=== PATIENT | female | born 1995 | race Caucasian/White ===

== ENCOUNTER 2019-10-12 12:50 | Outpatient (CLI) | payer OTHER, MEDICAID, SELFPAY ==
[2019-10-12 12:50] VITALS: BMI 30.4
[2019-10-12 13:13] VITALS: BP 112/64; PULSE 95; RESP 17; TEMP 36.8
--- NOTE | 2019-10-12 13:22 | US_ITS ---
WS: [id number] ULTRASOUND OB LIMITED TECHNIQUE: Limited ultrasound examination of the fetus. CLINICAL INFORMATION: Intermitent bleeding COMPARISON: August 03, 2019 FINDINGS: Measurements difficult to obtain due to position. Single interuterine gestation. presentation is vertex Placental location is posterior. Placenta grade: 0. heart rate 120 BPM. Normal JESSY Cervix 4.6 cm Estimated gestational age 35 weeks 5 days Estimated delivery November 11, 2019 Estimated weight 6 lbs. 2 oz. JESSY 7.8 greater than 95th percentile for age Biophysical profile 8 out of 8. breathin movement: 2 tone: 2 Amniotic fluid: 2 IMPRESSION Normal biophysical profile 8 out of 8
[2019-10-12 13:42] VITALS: BP 104/65; PULSE 81; RESP 17
== END 2019-10-12 14:20 | disposition home or self-care (01) ==
PROVIDERS: Family Provider Family Medicine; PCP Family Medicine; Visit Provider Family Medicine
DX: O46.90 Antepartum hemorrhage, unspecified, unspecified trimester (principal); Z3A.00 Weeks of gestation of pregnancy not specified
CPT/HCPCS: 59025; 76815; 76819; 99211

== ENCOUNTER 2019-10-14 11:15 | Outpatient (CLI) | payer OTHER, MEDICAID, SELFPAY ==
[2019-10-14 11:33] VITALS: RESP 18; TEMP 36.6
--- NOTE | 2019-10-14 11:37 | US_ITS ---
WS: [id number] BIOPHYSICAL PROFILE HISTORY: LOW JESSY COMPARISON: 10/12/2019 Parameters are as follows: Breathin Movement: 2 Tone: 2 Fluid volume: 2 heart rate 180 bpm. Fluid: 11.9 cm which is between the fifth and 50th percentile. Largest vertical pocket of amniotic fl uid is 4.3 cm. Biophysical profile score: 8/8. Normal amniotic fluid index. US/US OB BPP wo NST [id number] IMPRESSION:
[2019-10-14] MEDS: lactated ringers 1,000 ML 999 ML IV (11:58)
[2019-10-14 12:29] LABS: Basophils % 0.3 %; Eosinophils # 0.1 10^3/uL (0.0-0.8); Eosinophils % 1.6 %; Hematocrit 35.7 % (37.0-47.0); Hemoglobin 11.9 g/dL (11.5-15.3); Lymphocytes # 0.7 10^3/uL (0.8-4.8); Lymphocytes % 8.7 %; Mean Corpuscular HGB Conc 33.3 g/dL (30.0-36.0); Mean Corpuscular Hemoglobin 28.8 pg (28.0-34.0); Mean Corpuscular Volume 86.4 fL (81-99); Mean Platelet Volume 11.7 fL (7.4-10.4); Monocytes # 1.3 10^3/uL (0.2-0.9); Monocytes % 17.7 %; Neutrophils # 5.4 10^3/uL (1.8-7.7); Neutrophils % 70.6 %; Nucleated Red Blood Cells % 0 %; Platelet Count 138 10^3/cmm (130-400); Red Blood Count 4.13 10^6/uL (4.1-5.3); Red Cell Distribution Width 12.9 % (12.1-15.1); White Blood Count 7.6 10^3/uL (4.0-10.0)
[2019-10-14 12:51] LABS: Alanine Aminotransferase 24 U/L (0-33); Albumin Level 3.8 g/dL (3.5-5.2); Alkaline Phosphatase 122 IU/L (35-105); Anion Gap 18.7 (5-19); Aspartate Amino Transferase 30 U/L (0-32); Blood Urea Nitrogen 6 mg/dL (6-20); Calcium 9.4 mg/dL (8.5-10.5); Carbon Dioxide 19 mmol/L (22-29); Chloride 101 mmol/L (98-107); Globulin 2.7 g/dL (1.3-4.6); Glomerular Filtration Rate 122.8 mL/min (90-130); Glucose 72 mg/dL (65-115); Potassium 3.7 mmol/L (3.5-5.1); Sodium 135 mmol/L (136-145); Total Bilirubin 0.8 mg/dL (0.15-1.2); Total Protein 6.5 g/dL (6.6-8.7)
[2019-10-14 13:03] VITALS: BP 0/0
[2019-10-14 13:04] VITALS: BP 103/64; PULSE 104
[2019-10-14 13:23] VITALS: BP 108/64; PULSE 101
== END 2019-10-14 13:37 | disposition home or self-care (01) ==
LOC: OPOB 11:31 → OBGYN 13:27 → OPOB 10-15 08:03
PROVIDERS: Family Provider Family Medicine; PCP Family Medicine; Visit Provider Family Medicine
DX: O26.899 Other specified pregnancy related conditions, unspecified trimester (principal); Z3A.00 Weeks of gestation of pregnancy not specified; R11.0 Nausea; R19.7 Diarrhea, unspecified
CPT/HCPCS: 36415; 76819; 80053; 85025; 99211

== ENCOUNTER 2019-10-19 07:03 | Outpatient (CLI) | payer OTHER, MEDICAID, SELFPAY ==
--- NOTE | 2019-10-19 07:15 | US_ITS ---
WS: [id number] [place] [id number] REASON FOR EXAM: VAGINAL BLEEDING THIRD TRIMESTER FINDINGS: The cervix measured 3.79 cm and appears to be closed. A single fetus is seen in the cephalic presentation. heart rate 144 beats for minute. The placenta is lateral and slightly posterior and appears to be grade 2. Amniotic fluid indices 11.98 cm. Biophysical profile 03/26. The etiology of the bleeding is not well [place]. US/[place] [id number] IMPRESSION: Physical profile 03/26 Single fetus cephalic presentation the lateral posterior placenta which appears to be intact. Amniotic fluid indices were normal heart rate 144 bpm.
== END 2019-10-19 07:04 | disposition home or self-care (01) ==
LOC: RAD 07:07
PROVIDERS: Family Provider Family Medicine; PCP Family Medicine; Visit Provider Family Medicine
DX: O46.93 Antepartum hemorrhage, unspecified, third trimester (principal); Z3A.00 Weeks of gestation of pregnancy not specified
CPT/HCPCS: 59025; 76816; 99211

== ENCOUNTER 2019-10-19 12:20 | Outpatient (CLI) | payer OTHER, MEDICAID, SELFPAY ==
[2019-10-19 12:29] VITALS: BP 104/65; PULSE 80; RESP 16; TEMP 36.4
[2019-10-19 12:38] VITALS: BMI 30.4
== END 2019-10-19 12:55 | disposition home or self-care (01) ==
PROVIDERS: Family Provider Family Medicine; PCP Family Medicine; Visit Provider Family Medicine
DX: O46.90 Antepartum hemorrhage, unspecified, unspecified trimester (principal); Z3A.00 Weeks of gestation of pregnancy not specified
CPT/HCPCS: 59025; 99211

== ENCOUNTER 2019-10-22 09:20 | Outpatient (CLI) | payer OTHER, MEDICAID, SELFPAY ==
[2019-10-22 09:32] VITALS: BP 98/57; PULSE 75; RESP 16; TEMP 36.5
[2019-10-22 09:48] VITALS: BP 101/64; PULSE 85
[2019-10-22 10:17] VITALS: BMI 30.5
== END 2019-10-22 10:03 | disposition home or self-care (01) ==
PROVIDERS: Family Provider Family Medicine; PCP Family Medicine; Visit Provider Family Medicine
DX: O26.899 Other specified pregnancy related conditions, unspecified trimester (principal); Z3A.00 Weeks of gestation of pregnancy not specified
CPT/HCPCS: 59025; 99211

== ENCOUNTER 2019-10-25 15:22 | Outpatient (CLI) | payer OTHER, MEDICAID, SELFPAY ==
[2019-10-25 15:42] VITALS: BP 106/65; PULSE 80
[2019-10-25 16:02] VITALS: RESP 16; TEMP 36.8
--- NOTE | 2019-10-25 16:02 | USR_ITS ---
PROCEDURE INFORMATION: Exam: US , Limited Exam date and time: 10/25/2019 5:00 PM Age: 24 years old Clinical indication: complicated by abdominal or pelvic pain; Generalized abdominal pain; Third trimester; Gestational age or lmp: 38 weeks 2 days; ; Additional info: Abdominal pain, placenta evaluation TECHNIQUE: Imaging protocol: Real-time ultrasound of the maternal uterus with image documentation. Exam focused on the clinical indication. COMPARISON: [place] [id number] 10/19/2019 7:24 AM FINDINGS: GESTATION: Gestation: movement noted during the evaluation. Limited obstetrical ultrasound. anatomy and measurements as well as weight determination not evaluated. Heart rate: cardiac activity at 133 bpm and regular. Presentation: Cephalic presentation. Placenta: Fundoposterior and right lateral placenta without visible previa or abruption. Amniotic fluid: Largest amniotic fluid pocket measures 6.4 cm. Umbilical cord and insertion: Three-vessel cord. Normal placental cord origin. MATERNAL: Cervix: Cervix not imaged. US/ OB limited [id number] IMPRESSION: 1. Single intrauterine gestation in cephalic presentation with positive heart activity at 133 bpm. 2. Fundoposterior and right lateral placenta without visible previa or abruption. 3. Largest amniotic fluid pocket 6.4 cm.
[2019-10-25 16:13] VITALS: BP 98/61; PULSE 72
[2019-10-25 16:42] VITALS: BP 0/0
[2019-10-25 17:06] VITALS: BP 99/60; PULSE 79
[2019-10-25 17:10] LABS: Bilirubin Urine Neg (NEGATIVE); Blood Urine Neg (Negative); Glucose Urine UA Norm (Normal); Ketones Urine 1+ (Negative); Leukocyte Esterase Urine Negative (Negative); Nitrate Urine Negative (Negative); Protein Urine Neg (Negative); Specific Gravity, Urine 1.025 (1.005-1.030); Urine Appearance Hazy (CLEAR); Urine Color Yellow (Yellow); Urobilinogen Urine Norm (Negative); pH Urine 5 (5-7)
[2019-10-25 17:11] LABS: WBC Urine 0-4 /hpf (0-5)
[2019-10-25 17:12] LABS: Bacteria Urine 1+; Mucus Urine 1+; Transitional Epi Cells Urine 0-4 /hpf
[2019-10-25 17:13] LABS: Add Urine Culture? No
[2019-10-25 17:40] VITALS: BP 99/60; PULSE 79; RESP 17; TEMP 36.8
--- NOTE | 2019-10-25 18:00 | PC.NURSE ---
pt placed on monitor, sve performed, plan of care discussed. pitcher of water given, pt instructed to drink all in 20 minutes
== END 2019-10-25 17:40 | disposition home or self-care (01) ==
LOC: OPOB 15:33 → OBGYN 17:39 → OPOB 10-26 09:20
PROVIDERS: Family Provider Family Medicine; PCP Family Medicine; Visit Provider Family Medicine
DX: O26.899 Other specified pregnancy related conditions, unspecified trimester (principal); Z3A.00 Weeks of gestation of pregnancy not specified; R10.9 Unspecified abdominal pain
CPT/HCPCS: 59025; 76815; 81001; 99211

== ENCOUNTER 2019-10-26 09:41 | Outpatient (CLI) | payer OTHER, MEDICAID, SELFPAY ==
--- NOTE | 2019-10-26 10:15 | US_ITS ---
WS: [id number] BIOPHYSICAL PROFILE AND LIMITED OB. HISTORY: VAGINAL BLEEDING 3RD TRIMESTER COMPARISON: 10/25/2019. Presentation: Vertex. Cervix: Closed and normal length. Placenta: Posterior and fundal Grade: 2 HEART: FHR of 153BPM. JESSY: 10.9 CM. Between the fifth and 50th percentiles. Biophysical profile: Parameters are as follows: Breathin Movement: 2 Tone: 2 Fluid volume: 2 1. Biophysical profile score: 8/8. 2. Amniotic fluid index at 10.9 cm is between the fifth and 50th percentiles. Largest vertical pocket 3.3 cm. US/US OB F/U w BPP wo NST IMPRESSION:
== END 2019-10-26 09:42 | disposition home or self-care (01) ==
LOC: US 09:43
PROVIDERS: Family Provider Family Medicine; PCP Family Medicine; Visit Provider Family Medicine
DX: O46.93 Antepartum hemorrhage, unspecified, third trimester (principal)
CPT/HCPCS: 76816; 76819; 99211

== ENCOUNTER 2019-10-26 10:32 | Outpatient (CLI) | payer OTHER, MEDICAID, SELFPAY ==
[2019-10-26 10:32] VITALS: BMI 30.2
[2019-10-26 10:43] VITALS: BP 97/64; PULSE 80; RESP 16; TEMP 36.6
[2019-10-26 10:58] VITALS: BP 92/62; PULSE 91; RESP 16
== END 2019-10-26 11:12 | disposition home or self-care (01) ==
PROVIDERS: Family Provider Family Medicine; PCP Family Medicine; Visit Provider Family Medicine
DX: O46.90 Antepartum hemorrhage, unspecified, unspecified trimester (principal); Z3A.00 Weeks of gestation of pregnancy not specified
CPT/HCPCS: 59025; 99211

== ENCOUNTER 2019-10-29 09:53 | Outpatient (CLI) | payer OTHER, MEDICAID, SELFPAY ==
[2019-10-29 10:13] VITALS: BP 102/68; PULSE 90; RESP 16; TEMP 36.4
[2019-10-29 10:14] VITALS: BMI 30.5
== END 2019-10-29 10:30 | disposition home or self-care (01) ==
LOC: OPOB 10:07 → OBGYN 10:10 → OPOB 10-30 08:07
PROVIDERS: Family Provider Family Medicine; PCP Family Medicine; Visit Provider Family Medicine
DX: O46.90 Antepartum hemorrhage, unspecified, unspecified trimester (principal); Z3A.00 Weeks of gestation of pregnancy not specified
CPT/HCPCS: 59025; 99211

== ENCOUNTER 2019-11-01 17:45 | Inpatient (IN) | payer OTHER, MEDICAID, SELFPAY ==
[2019-11-01] VITALS (15 sets, daily range): BP systolic 0–109; BP diastolic 0–70; PULSE 83–97; RESP 15–16; TEMP 36.7; BMI 31.2
[2019-11-01 19:29] LABS: Basophils % 0.3 %; Eosinophils # 0.3 10^3/uL (0.0-0.8); Eosinophils % 2.6 %; Hematocrit 32.4 % (37.0-47.0); Hemoglobin 10.9 g/dL (11.5-15.3); Lymphocytes % 20.9 %; Mean Corpuscular HGB Conc 33.6 g/dL (30.0-36.0); Mean Corpuscular Hemoglobin 29.1 pg (28.0-34.0); Mean Corpuscular Volume 86.6 fL (81-99); Mean Platelet Volume 11.8 fL (7.4-10.4); Monocytes # 1.2 10^3/uL (0.2-0.9); Monocytes % 12.1 %; Neutrophils # 6.1 10^3/uL (1.8-7.7); Neutrophils % 63.3 %; Nucleated Red Blood Cells % 0 %; Platelet Count 178 10^3/cmm (130-400); Red Blood Count 3.74 10^6/uL (4.1-5.3); Red Cell Distribution Width 12.6 % (12.1-15.1); White Blood Count 9.7 10^3/uL (4.0-10.0)
[2019-11-01] MEDS: miSOPROStol 100 mcg tablet 25 MCG VAGINAL (19:45)
--- NOTE | 2019-11-01 21:04 | PC.NURSE ---
Dr. Vargas at bedside discussing POC with patient.
--- NOTE | 2019-11-01 21:15 | P.HP_ITS ---
Providers/Chief Complaint Admitting Physician: Jun Vargas MD Primary Care Provider: Jun Vargas MD Chief Complaint: induction History of Present Illness Traci Santamaria is a 24 year old at 39.2 weeks gestation by 7-week ultrasound inconsistent with LMP. Her is complicated by severe persistent asthma, first, second and third trimester bleeding. The patient presents to labor and delivery triage for a scheduled induction of labor secondary to bleeding throughout the . The concern was that this could be secondary to a placental bleed, however this cannot be seen on ultrasound. For this reason we waited until 39 weeks gestation. The patient currently denies any leakage of fluid, fevers, cough, chest pains, shortness of breath, headaches, nausea, vomiting, diarrhea, constipation. She has had some mild spotting since her cervical exam in the office. Medications/Allergies Allergies Allergy/AdvReac Type Severity Reaction Status Date / Time [facility] Allergy Unknown Verified 11/01/19 19:37 PFSH Acute PFSH: Medical History (Updated 11/01/19 @ 21:17 by Jun Vargas MD) Asthma Female Reproductive History: : 1 Vitals/I&O/Wt Last Vital Signs Temp 98.1 F 11/01/19 18:00 Pulse 97 11/01/19 20:47 Resp 16 11/01/19 18:00 BP 109/67 11/01/19 20:47 Weight last 48 hrs Weight 182 lb Physical Exam Narrative: EXAM NARRATIVE: General: Alert and oriented x3 Eyes: Pupils equal round and reactive to light and accommodation Mouth: Mucous membranes moist, pharynx non-erythematous Cardiac: Regular rate and rhythm without murmurs Lungs: Clear to auscultation bilaterally without wheezes, crackles or rhonchi Abdomen: Soft, non-tender, fundus consistent with gestational age Extremities: Trace edema in the bilateral lower extremities Data : 11/01/19 18:50 A&P Assessment and plan (1) Asthma: Status: Acute Code(s): J45.909 - Unspecified asthma, uncomplicated Additional A&P Information The patient is currently doing well at this time. We will proceed with induction of labor using Cytotec. heart tones are currently in the mid 130s with moderate variability and good accelerations. She is having contractions every 3 to 5 minutes. They are mild in nature. The patient is currently normotensive. She is afebrile. We will plan to continue with routine induction of labor. All questions were answered. The patient and her are in agreement with the current plan of care. Attestations Medical Necessity Statement*: The patient will be here for greater than 2 midnights due to routine intrapartum and management of labor and delivery. 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
[2019-11-02] VITALS (111 sets, daily range): BP systolic 0–131; BP diastolic 0–95; PULSE 21–116; RESP 17–18; TEMP 36.6–37.1; O2SAT 69–100
[2019-11-02] MEDS: miSOPROStol 100 mcg tablet 25 MCG VAGINAL (02:30)
[2019-11-02 06:03] LABS: Nitrazine Paper, PH Positive
[2019-11-02] MEDS: dextrose 5%-lactated ringers 1,000 ML 125 ML IV (07:39)
[2019-11-02] MEDS: oxytocin 30 UNIT/500 ML BAG IV (07:39)
--- NOTE | 2019-11-02 08:20 | PM.PN ---
Subjective Subjective: Interval history: The patient is currently starting to feel her contractions little bit more. She had a period of possible leakage of fluid early this morning. After going to the bathroom, there was another leakage of fluid that was involuntary. She has not had a significant amount since. The patient has had some vaginal bleeding and a small clot as well. Besides this she is feeling well. Vitals/I&O/Wt Last Vital Signs Temp 97.9 F 11/02/19 07:43 Pulse 69 11/02/19 07:56 Resp 18 11/02/19 05:45 BP 99/63 11/02/19 07:56 11/01/19 11/02/19 11/02/19 22:59 06:59 14:59 Intake Total 0.517 / 0.517 Balance 0.517 / 0.517 Weight last 48 hrs Weight 182 lb Physical Exam Narrative: EXAM NARRATIVE: General: Alert and oriented x3 Cardiac: Regular rate and rhythm without murmurs Lungs: Clear to auscultation bilaterally without wheezes, crackles or rhonchi Abdomen: Soft, non-tender, fundus consistent with gestational age Extremities: Trace edema in the bilateral lower extremities Data : 11/01/19 18:50 A&P Additional A&P Information The patient is doing well at this time. She is changed to 1.5 cm dilation. She is having some vaginal bleeding with this. Currently heart tones are category 1 and they are in the mid 130s with moderate variability and good accelerations. I feel that the bleeding is likely secondary to cervical bleeding. We will watch for signs of complications. The patient is currently wilber every 2 to 3 minutes. The patient is currently on 5 units of Pitocin. All questions were answered. Proceed with induction of labor as scheduled. Attestations Medical Necessity Statement*: The patient continues need inpatient care for induction of labor. Coding Level of Care Code Acute Respiratory Therapy Instructor for [facility] James
[2019-11-02] MEDS: butorphanol 2 mg/mL SDV 1 mL 1 MG IVP (12:43)
[2019-11-02] MEDS: lactated ringers 1,000 ML 999 ML IV ×3 (14:31→20:31)
--- NOTE | 2019-11-02 15:15 | PC.NURSE ---
Patient sitting up in bed. Anesthesia in room explaining epidural.
--- NOTE | 2019-11-02 15:20 | PC.NURSE ---
Epidural procedure in process.
[2019-11-02] MEDS: ondansetron 2 mg/ML SDV 2 mL 4 MG IVP (20:31)
--- NOTE | 2019-11-02 20:48 | P.PCNOB_ITS ---
Delivery Note: Date of delivery: November 02, 2019 Pre-delivery diagnoses: 1. Intrauterine at 39.3 weeks gestation 2. First, second and third trimester bleeding 3. Asthma Post-delivery diagnoses: 1. Intrauterine status post spontaneous vaginal delivery at 39.3 weeks gestation 2. First, second and third trimester bleeding 3. Asthma 4. Delivery of healthy infant female weighing 7 pounds 12 ounces with Apgars of 8 and 9 Procedure: Spontaneous vaginal delivery Op report anesthesia: Epidural Delivering Physician: Jun Vargas MD Estimated blood loss (mL): 350 Pre-Delivery Course: The patient was admitted to labor and delivery triage for induction of labor secondary to bleeding during all 3 trimesters. There was no evidence of placental abruption, however it was suspicious for this. The patient was admitted the evening of 11/01/2019 and started on Cytotec. She was given 2 doses and her cervix changed to 1.5 cm dilation. SROM took place at 5:40 AM on 11/02/2019. By the morning of 11/02/2019, she was started on IV Pitocin for augmentation of labor. The patient continued to make gradual change and received a laboring epidural. The patient continued to make change and was complete by 183 on 11/02/2019. Delivery: Patient began pushing at 1849 on 11/02/2019. The patient pushed well and the infant's head delivered in the OA position at 2007 on 11/02/2019. There was no nuchal cord. The right shoulder was the anterior shoulder. It delivered with significant downward pressure. Significant upward pressure was needed to deliver the infant's left shoulder. The delivered without complication. Time between delivery of the head to delivery of the rest of the was approximately 30 seconds. The infant's mouth and nose were bulb suctioned by myself. The began to cry shortly after delivery. The infant was then placed on the mother's chest where the nurses were awaiting to care for her. The was vigorous. The cord was clamped by myself after approximately 1 minute. The 's father cut the cord. Cord blood was obtained. The cord was then drained of blood and uterine massage was carried out. The placenta delivered at 2011 on 11/02/2019. The placenta was noted to be intact with a central umbilical cord insertion site. IV Pitocin was then bolused. There was heavy bleeding after delivery of the placenta. The cervix was inspected and was initially noted to be bleeding. Cervical vessels were clamped using ring forceps. They responded well to this. A small laceration of the cervix was noted that was no more than 1 cm. The bleeding stopped without further need for repair of the laceration. The vaginal wall was inspected and a second-degree tear was noted that was in the midline perineal region. This did not extend to the anal sphincter. Adequate anesthesia was noted secondary to the epidural. 3-0 Vicryl was used to repair the laceration in a running fashion. The patient tolerated this well. The rectum was inspected digitally and no sutures were noted. Currently the patient's bleeding is scant. The patient initially had some hypotension that resolved with laying her head down flat and giving an IV bolus of LR and turning down the Pitocin. Currently her blood pressures are back to the normal range and she is feeling better. Currently both the mother and infant are doing well. 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
[2019-11-02] MEDS: benzocaine-menthol 78 gm Canister 1 SPRAY TOPICAL (23:16)
[2019-11-03] VITALS (9 sets, daily range): BP systolic 88–98; BP diastolic 47–63; PULSE 78–120; RESP 15–17; TEMP 36.4–36.7; O2SAT 97–98
[2019-11-03] MEDS: prenatal vitamin Capsule 1 CAP PO (08:34)
[2019-11-03] MEDS: docusate sodium 100 mg Capsule PO ×2 (08:34→18:30)
[2019-11-03] MEDS: lanolin oint 7 gm 1 APPLIC TOPICAL (08:34)
[2019-11-03 09:19] LABS: Hematocrit 27.1 % (37.0-47.0); Mean Corpuscular HGB Conc 33.2 g/dL (30.0-36.0); Mean Corpuscular Hemoglobin 29.4 pg (28.0-34.0); Mean Corpuscular Volume 88.6 fL (81-99); Platelet Count 143 10^3/cmm (130-400); Red Blood Count 3.06 10^6/uL (4.1-5.3); Red Cell Distribution Width 12.8 % (12.1-15.1); White Blood Count 12.5 10^3/uL (4.0-10.0)
--- NOTE | 2019-11-09 09:17 | PM.DCS ---
Discharge Providers Date of Admission: 11/01/19 17:45 Date of Discharge: November 03, 2019 Attending Provider at Admission: Jun Vargas MD Attending Provider at Discharge: Jnu Vargas MD Primary Care Provider: Jun Vargas MD Diagnoses at Discharge Discharge Diagnosis (1) Asthma: Status: Acute (2) Intrauterine : Status: Acute Reason for Visit Reason for Visit: Reason For Visit: induction Hospital Course Hospital Course: The patient was admitted to labor and delivery triage for induction of labor secondary to bleeding during all 3 trimesters. There was no evidence of placental abruption, however it was suspicious for this. The patient was admitted the evening of 11/01/2019 and started on Cytotec. She was given 2 doses and her cervix changed to 1.5 cm dilation. SROM took place at 5:40 AM on 11/02/2019. By the morning of 11/02/2019, she was started on IV Pitocin for augmentation of labor. The patient continued to make gradual change and received a laboring epidural. The patient continued to make change and was complete by 183 on 11/02/2019. Delivery: The patient began pushing at 184 on 11/02/2019. The patient pushed well and the 's head delivered in the OA position at 2007 on 11/02/2019. There was no nuchal cord. The right shoulder was the anterior shoulder. It delivered with significant downward pressure. Significant upward pressure was needed to deliver the 's left shoulder. The infant delivered without complication. Time between delivery of the head to delivery of the rest of the infant was approximately 30 seconds. The 's mouth and nose were bulb suctioned by myself. The began to cry shortly after delivery. The infant was then placed on the mother's chest where the nurses were awaiting to care for her. The was vigorous. The cord was clamped by myself after approximately 1 minute. The infant's father cut the cord. Cord blood was obtained. The cord was then drained of blood and uterine massage was carried out. The placenta delivered at 2011 on 11/02/2019. The placenta was noted to be intact with a central umbilical cord insertion site. IV Pitocin was then bolused. There was heavy bleeding after delivery of the placenta. The cervix was inspected and was initially noted to be bleeding. Cervical vessels were clamped using ring forceps. They responded well to this. A small laceration of the cervix was noted that was no more than 1 cm. The bleeding stopped without further need for repair of the laceration. The vaginal wall was inspected and a second-degree tear was noted that was in the midline perineal region. This did not extend to the anal sphincter. Adequate anesthesia was noted secondary to the epidural. 3-0 Vicryl was used to repair the laceration in a running fashion. The patient tolerated this well. The rectum was inspected digitally and no sutures were noted. The patient's bleeding was scant. The patient initially had some hypotension that resolved with laying her head down flat and giving an IV bolus of LR and turning down the Pitocin. Her blood pressures return to normal shortly after delivery. : The patient is done very well without any complications. Her bleeding has decreased well, she is ambulating, voiding, passing gas and tolerating food by mouth. Her pain is well controlled. The patient does not have any complications at this time. We will plan to discharge home. All questions were answered. Routine management was discussed in detail. Physical Exam Narrative: EXAM NARRATIVE: General: Alert and oriented x3 Cardiac: Regular rate and rhythm without murmurs Lungs: Clear to auscultation bilaterally without wheezes, crackles or rhonchi Abdomen: Soft, non-tender, fundus is firm and 2 cm below the umbilicus. Extremities: Trace edema in the bilateral lower extremities Urinary Catheter Management^: Rosales: Cath Placed During This Visit: yes, but has since been removed by the nurse Reason for Continuing Indwelling Catheter: Decision to DC Catheter Urinary Catheter Date of Insertion: 11/02/19 Urinary Catheter Time of Insertion: 15:45 Date Urinary Catheter Removed: 11/02/19 Time Urinary Catheter Discontinued: 18:43 Discharge Data Vitals: Last Vital Signs Temp 98.1 F 11/03/19 22:00 Pulse 86 11/03/19 22:00 Resp 16 11/03/19 22:00 BP 98/62 11/03/19 22:00 Pulse Ox 97 11/03/19 16:00 Discharge Plan Discharge Patient Disposition: Home, Self-Care Condition: Stable Prescriptions: New ibuprofen 800 mg Tablet 800 mg PO TID Qty: 60 RF: 0 hydrocodone-acetaminophen 5-325 mg Tablet 1 tab PO Q6H PRN (Reason: Moderate To Severe Pain) Qty: 15 RF: 0 ferrous fumarate 325 mg (106 mg iron) tablet 325 mg PO DAILY Qty: 30 RF: 0 Continued budesonide [Pulmicort] 0.5 mg/2 mL Suspension For Nebulization 1 ml INHALATION DAILY PRN (Reason: Shortness Of Breath Or Wheezing) RF: 0 28-800 mg-mcg Tablet 1 tab PO DAILY RF: 0 Discharge Orders: Discharge Order (Routine); Ordered 11/03/19 Ordered By: Jun Vargas Referrals: Jun Vargas MD [Primary Care Provider] - 6 Weeks Discharge Diet: Regular Discharge Activity: Limit activity as instructed Patient Instructions: OB Discharge Report, OB Food/Drug Interaction Guide, OB Feeding Plan, OB Your Care - [facility] Family [facility], OB Proud Parent Packet, OB Vaginal Deliveries - [facility] Activity Restrictions/Additional Instructions: No baths and nothing per vagina for 6 weeks. Showers are okay. 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
== END 2019-11-03 22:05 | disposition home or self-care (01) | DRG 807 ==
PROVIDERS: Admitting Provider Family Medicine; Family Provider Family Medicine; PCP Family Medicine; Visit Provider Family Medicine
DX: O67.8 Other intrapartum hemorrhage (principal); Z37.0 Single live birth; Z3A.39 39 weeks gestation of pregnancy; O70.1 Second degree perineal laceration during delivery; O99.52 Diseases of the respiratory system complicating childbirth; J45.50 Severe persistent asthma, uncomplicated
CPT/HCPCS: 12345; 36415; 51702; 59409; 83986; 85025; 85027; 96375; 98960; J0595; J2405; J2795

== ENCOUNTER → 2022-01-12 10:43 | Outpatient (BNVA) | payer SELFPAY | PROVIDERS: Family Provider Family Medicine; PCP Family Medicine; Visit Provider Family Medicine | DX: R53.81 Other malaise (principal); R53.83 Other fatigue | CPT/HCPCS: 85025 ==

== ENCOUNTER 2022-06-23 19:51 | Emergency (ER) | payer BC, MEDICAID, SELFPAY ==
[2022-06-23 19:54] VITALS: BP 123/74; PULSE 87; RESP 18; TEMP 36.8; O2SAT 97; BMI 28.3
--- NOTE | 2022-06-23 20:23 | USR_ITS ---
PROCEDURE INFORMATION: Exam: US First Trimester, Transabdominal and US , Transvaginal Exam date and time: 06/23/2022 8:40 PM Age: 26 years old Clinical indication: Lmp or gestational age (in weeks): N/a; ; Patient HX: Patient had heavy bleeding and cramping starting early this morning. Positive home test; Additional info: 5w preg vaginal bleeding LABS AND CLINICAL REPORTS: Serum Choriogonadotropin (HCG): 6 mIU/mL Last menstrual period start date: 05/16/2022 Gestational age (Established): 5 w 3 d Estimated due date (Established): 02/20/2023 TECHNIQUE: Imaging protocol: Real-time transabdominal obstetrical ultrasound of the maternal pelvis and a first trimester , less than 14 weeks 0 days, with image documentation. Transvaginal imaging was used for better evaluation of the fetus, adnexa, and/or cervix. COMPARISON: US OB F/U w BPP wo NST 10/26/2019 10:21 AM FINDINGS: Gestation: No intrauterine gestation identified. No ectopic gestation identified. MATERNAL: Uterus: Uterus measures 4.1 cm x 8.5 cm . Endometrial thickness 7 mm. Cervix: Nabothian cyst in the cervix. Right ovary/adnexa: Right ovary measures 4 cm x 3.2 cm x 2.4 cm. Right ovarian volume is 16.7 mL. Normal blood flow with a 1.8 cm follicle. Left ovary/adnexa: Left ovary measures 3.3 cm x 2.5 cm x 2 cm. Left ovarian volume is 8.9 mL. Normal blood flow. Intraperitoneal space: Small amount of anechoic peritoneal fluid. US/US OB <=14 wk fetus w transvag IMPRESSION: 1. No intrauterine or ectopic gestation identified. This could represent a completed spontaneous miscarriage. An occult ectopic gestation is not excluded. Close follow-up with quantitative beta HCG values recommended.
--- NOTE | 2022-06-23 20:25 | ED_ITS ---
HPI - Female Genitourinary General: Chief complaint: Vaginal Bleeding Stated complaint: 5 Weeks Preg\Bleeding Time Seen by Provider: 06/23/22 20:04 Source: patient History of Present Illness: 26-year-old G2, P1 female at 5 weeks of . She has experienced vaginal bleeding with passage of clots today. No other vaginal discharge. No fever. She has had some cramping. She says the bleeding is about like a period. MD elicited complaint: vaginal bleeding and pelvic pain Pertinent past history: other Onset (ago): hour(s) Location of symptoms: pelvis Severity: moderate Female Urogenital Radiation: Non-Radiating Quality of pain: cramping Consistency: intermittent Vaginal discharge: none Vaginal bleeding: moderate Urinary symptoms: Difficulty Urinating and Dysuria Exacerbating factors: none Relieving factors: none Associated symptoms: Reports abdominal pain; Deny fevers/chills, headache(s), nausea, syncope, vaginal discharge or weakness Treatment prior to arrival: none Date of Last Menstrual Period: 05/16/22 Review of Systems Const: Denies: fever(s) or chills Eyes: Denies: change in vision ENMT: Denies: throat pain Card: Denies: chest pain, palpitations or syncope Resp: Denies: dyspnea GI: Reports: abdominal pain; Denies: nausea or vomiting : Denies: vaginal discharge Neuro: Denies: headache(s) PFS ED PFSH: Medical History Asthma Female Reproductive History: Date of last menstrual period: 05/16/22 Physical Exam Const: COMMON NORMALS: no acute distress and patient oriented x3 GENERAL APPEARANCE: cooperative and comfortable HENMT: COMMON NORMALS: normocephalic, atraumatic and Normal external nose present HEAD & SCALP: normocephalic and atraumatic FACE & SINUS: normal facial exam and face symmetric NOSE: Normal external nose present Eye: COMMON NORMALS: Equal, round and reactive pupils present and EOMs intact bilaterally PUPIL: Yes Equal, round and reactive pupils present Neck/C-Spine: GENERAL: Yes trachea midline Chest: CHEST: Yes Symmetrical chest wall rise Resp: COMMON NORMALS: normal respiratory effort, No retractions, No use of accessory muscles and clear to auscultation bilaterally AUSCULTATION: clear to auscultation bilaterally Cardio: COMMON NORMALS: regular rate and regular rhythm RATE: regular rate RHYTHM: regular rhythm GI: COMMON NORMALS: Normal to inspection, nondistended, normoactive bowel sounds present : OB/EXTERNAL & SPECULUM: other (mild pelvic tendernes) Extremity: COMMON NORMALS: no pedal edema Neuro: TALA COMA SCALE: document GCS findings Tala coma scale eye opening: Spontaneous Tala coma scale verbal response: Orientated Tala coma scale motor response: Obey commands Tala coma scale total score: 15 COMMON NORMALS: patient oriented x3 SENSORY EXAM: Yes extremities (intact) Psych: COMMON NORMALS: speech normal SPEECH: Yes normal speech Skin: COMMON NORMALS: no rashes or lesions noted GENERAL SKIN EXAM: no rashes or lesions noted Course Vital Signs: Vital signs: Vital Signs Temperature 98.2 F 06/23/22 19:54 Pulse Rate 87 06/23/22 19:54 Respiratory Rate 18 06/23/22 19:54 Blood Pressure 123/74 06/23/22 19:54 Pulse Oximetry 97 06/23/22 19:54 Oxygen Delivery Me thod 06/23/22 19:54 MDM - Female Medical Decision Making CBC is normal. BMP is not remarkable. Her serum quantitative hCG is 6. Urinalysis shows hematuria likely related to her vaginal bleeding. Her pain is mild at this point. Ultrasound shows no IUP consistent with her negative test. Suspect this is a completely missed miscarriage versus false positive hCG at home. Lab Data : 06/23/22 20:40 06/23/22 20:40 Radiology Impressions Obstetrics Ultrasound 06/23/22 20:23 IMPRESSION: 1. No intrauterine or ectopic gestation identified. This could represent a completed spontaneous miscarriage. An occult ectopic gestation is not excluded. Close follow-up with quantitative beta HCG values recommended. Laboratory Results WBC 7.0 10^3/uL (4.0-10.0) 06/23/22 20:40 RBC 4.56 10^6/uL (4.1-5.3) 06/23/22 20:40 Hgb 13.2 g/dL (11.5-15.3) 06/23/22 20:40 Hct 39.8 % (37.0-47.0) 06/23/22 20:40 MCV 87.3 fl (81-99) 06/23/22 20:40 MCH 28.9 pg (28.0-34.0) 06/23/22 20:40 MCHC 33.2 g/dL (30.0-36.0) 06/23/22 20:40 RDW 12.3 % (12.1-15.1) 06/23/22 20:40 Plt Count 243 10^3/cmm (130-400) 06/23/22 20:40 MPV 10.1 fL (7.4-10.4) 06/23/22 20:40 Neut % (Auto) 55.2 % 06/23/22 20:40 Lymph % (Auto) 28.7 % 06/23/22 20:40 [place] % (Auto) 10.0 % 06/23/22 20:40 Eos % (Auto) 5.2 % 06/23/22 20:40 Baso % (Auto) 0.6 % 06/23/22 20:40 Neut # (Auto) 3.85 10^3/uL (1.8-7.7) 06/23/22 20:40 Lymph # (Auto) 2.0 10^3/uL (0.8-4.8) 06/23/22 20:40 [place] # (Auto) 0.7 10^3/uL (0.2-0.9) 06/23/22 20:40 Eos # (Auto) 0.4 10^3/uL (0.0-0.8) 06/23/22 20:40 Baso # (Auto) 0.0 10^3/uL (0.0-0.1) 06/23/22 20:40 Nucleated RBC % (auto) 0 % 06/23/22 20:40 Nucleated RBCs # 0.0 /100WBC 06/23/22 20:40 Sodium 134 mmol/L (136-145) L 06/23/22 20:40 Potassium 3.4 mmol/L (3.5-5.1) L 06/23/22 20:40 Chloride 101 mmol/L (98-107) 06/23/22 20:40 Carbon Dioxide 22 mmol/L (22-29) 06/23/22 20:40 Anion Gap 14.4 (5-19) 06/23/22 20:40 BUN 8 mg/dL (6-20) 06/23/22 20:40 Creatinine 0.6 mg/dL (0.5-0.9) 06/23/22 20:40 GFR Calculation 120.8 mL/min (90-130) 06/23/22 20:40 Glucose 90 mg/dL (65-115) 06/23/22 20:40 Calculated Osmolality 276 mOsm/kg (285-295) L 06/23/22 20:40 Calcium 9.2 mg/dL (8.5-10.5) 06/23/22 20:40 Total Bilirubin 0.6 mg/dL (0.15-1.2) 06/23/22 20:40 AST 19 U/L (0-32) 06/23/22 20:40 ALT 14 U/L (0-33) 06/23/22 20:40 Alkaline Phosphatase 59 U/L (35-105) 06/23/22 20:40 Total Protein 7.6 g/dL (6.6-8.7) 06/23/22 20:40 Albumin 4.7 g/dL (3.5-5.2) 06/23/22 20:40 Globulin 2.9 g/dL (1.3-4.6) 06/23/22 20:40 HCG, Qual Negative (Negative) 06/23/22 20:10 Ser , Semi-Qnt 6.31 mIU/mL 06/23/22 20:40 Urine Color Yellow (Yellow) 06/23/22 20:10 Urine Appearance Clear (CLEAR) 06/23/22 20:10 Urine pH 5 (5-7) 06/23/22 20:10 Ur Specific [place] 1.020 (1.005-1.030) 06/23/22 20:10 Urine Protein Neg (Negative) 06/23/22 20:10 Urine Glucose (UA) Norm (Normal) 06/23/22 20:10 Urine Ketones 1+ (Negative) H 06/23/22 20:10 Urine Blood 2+ (Negative) H 06/23/22 20:10 Urine Nitrate Negative (Negative) 06/23/22 20:10 Urine Bilirubin Neg (Negative) 06/23/22 20:10 Urine Urobilinogen Norm mg/dL (Negative) 06/23/22 20:10 Ur Leukocyte Esterase Negative (Negative) 06/23/22 20: Urine RBC 10-15 /hpf (0-2) H 06/23/22 20:10 Urine WBC 0-4 /hpf (0-5) H 06/23/22 20:10 Ur Squamous Epith Cells None /hpf (0-5) 06/23/22 20:10 Amorphous Sediment Not Reportable 06/23/22 20:10 Urine Bacteria Trace /hpf (NONE) 06/23/22 20:10 Discharge Plan Discharge Patient Disposition: Home Clinical Impression: Vaginal bleeding, Complete Condition: Stable Prescriptions: No Action fluoxetine 20 mg capsule 20 mg PO DAILY amoxicillin-pot clavulanate 875-125 mg tablet 1 tab PO BID Qty: 14 0RF ferrous fumarate 325 mg (106 mg iron) tablet 325 mg PO DAILY Qty: 30 0RF budesonide [Pulmicort] 0.5 mg/2 mL Suspension For Nebulization 1 ml INHALATION DAILY PRN (Reason: Shortness Of Breath Or Wheezing) Discharge Orders: Discharge ED (Routine); Ordered 06/23/22 Ordered By: Kiran Montelongo Referrals: Jun Vargas MD [Primary Care Provider] - 1-3 days Patient Instructions: Miscarriage (ED) Activity Restrictions/Additional Instructions: Return for worsening vaginal bleeding, soaking a pad an hour for more than 3 hours, fever greater than 100, worsening pain, any other concerning symptoms. Follow-up with your doctor next week. Coding Level of Care Code ED Fruit Cutter for Chg Fwd Exam Comprehensive
[2022-06-23 20:38] LABS: HCG Qualitative Urine. Negative (Negative)
[2022-06-23 20:48] LABS: Basophils % 0.6 %; Eosinophils # 0.4 10^3/uL (0.0-0.8); Eosinophils % 5.2 %; Hematocrit 39.8 % (37.0-47.0); Hemoglobin 13.2 g/dL (11.5-15.3); Lymphocytes % 28.7 %; Mean Corpuscular HGB Conc 33.2 g/dL (30.0-36.0); Mean Corpuscular Hemoglobin 28.9 pg (28.0-34.0); Mean Corpuscular Volume 87.3 fl (81-99); Mean Platelet Volume 10.1 fL (7.4-10.4); Monocytes # 0.7 10^3/uL (0.2-0.9); Neutrophils # 3.85 10^3/uL (1.8-7.7); Neutrophils % 55.2 %; Nucleated Red Blood Cells % 0 %; Platelet Count 243 10^3/cmm (130-400); Red Blood Count 4.56 10^6/uL (4.1-5.3); Red Cell Distribution Width 12.3 % (12.1-15.1)
[2022-06-23] MEDS: sodium chloride 0.9% 1,000 ML 999 ML IV (20:48)
[2022-06-23 21:00] LABS: Bilirubin Urine Neg (Negative); Blood Urine 2+ (Negative); Glucose Urine UA Norm (Normal); Ketones Urine 1+ (Negative); Leukocyte Esterase Urine Negative (Negative); Nitrate Urine Negative (Negative); Protein Urine Neg (Negative); Urine Appearance Clear (CLEAR); Urine Color Yellow (Yellow); Urobilinogen Urine Norm (Negative); pH Urine 5 (5-7)
[2022-06-23 21:02] LABS: WBC Urine 0-4 /hpf (0-5)
[2022-06-23 21:03] LABS: Add Urine Culture? No; Bacteria Urine TRACE /hpf
[2022-06-23 21:10] LABS: HCG Quantitative 6.31 mIU/mL
[2022-06-23 21:30] LABS: Alanine Aminotransferase 14 U/L (0-33); Albumin Level 4.7 g/dL (3.5-5.2); Alkaline Phosphatase 59 U/L (35-105); Anion Gap 14.4 (5-19); Aspartate Amino Transferase 19 U/L (0-32); Blood Urea Nitrogen 8 mg/dL (6-20); Calcium 9.2 mg/dL (8.5-10.5); Carbon Dioxide 22 mmol/L (22-29); Chloride 101 mmol/L (98-107); Globulin 2.9 g/dL (1.3-4.6); Glomerular Filtration Rate 120.8 mL/min (90-130); Glucose 90 mg/dL (65-115); Osmolality Calculated 276 mOsm/kg (285-295); Potassium 3.4 mmol/L (3.5-5.1); Sodium 134 mmol/L (136-145); Total Bilirubin 0.6 mg/dL (0.15-1.2); Total Protein 7.6 g/dL (6.6-8.7)
== END 2022-06-23 22:22 | disposition home or self-care (01) ==
PROVIDERS: Emergency Provider Emergency Medicine; PCP Family Medicine
DX: O03.9 Complete or unspecified spontaneous abortion without complication (principal)
CPT/HCPCS: 76801; 76817; 80053; 81001; 81025; 84702; 85025; 99284; J7030

== ENCOUNTER → 2023-03-05 11:11 | Outpatient (BNVA) | payer OTHER, SELFPAY | PROVIDERS: PCP Family Medicine; Visit Provider Family Medicine | DX: Z34.80 Encounter for supervision of other normal pregnancy, unspecified trimester (principal); R30.0 Dysuria | CPT/HCPCS: 80307; 81000; 81025; 84144; 84443; 84702; 85025; 86592; 86762; 86803; 86850; 86900; 87086; 87340; 87491; 87591; 87624; 87806 ==

== ENCOUNTER 2023-03-20 09:36 | Outpatient (CLI) | payer OTHER, BC, MEDICAID, SELFPAY ==
--- NOTE | 2023-03-20 10:00 | US_ITS ---
WS: [id number] EARLY OBSTETRICAL ULTRASOUND (<14 WEEKS). HISTORY: Dating US COMPARISON: None available. Single intrauterine gestational sac is identified. Cardiac activity at 160 BPM. Old [place]-rump length rolf sures 1.8 cm which corresponds to a gestation of 8w2d. Normal-appearing yolk sac and amnion demonstra ankit. No subchorionic hemorrhage. No free fluid. Normal size ovaries with no mass. US/US OB <= 14 weeks fetus [id number] IMPRESSION: 1. Single intrauterine gestation of 8 weeks 2 days with an EDC of 10/28/2023. 2. Normal cardiac activity.
== END 2023-03-20 09:37 | disposition home or self-care (01) ==
LOC: RAD 09:43
PROVIDERS: PCP Family Medicine; Visit Provider Family Medicine
DX: Z34.81 Encounter for supervision of other normal pregnancy, first trimester (principal)
CPT/HCPCS: 76801; 80307; 81000; 81025; 84144; 84443; 84702; 85025; 86592; 86762; 86803; 86850; 86900; 87086; 87340; 87491; 87591; 87624; 87806

== ENCOUNTER 2023-06-07 10:01 | Outpatient (CLI) | payer OTHER, BC, MEDICAID, SELFPAY ==
--- NOTE | 2023-06-07 10:00 | US_ITS ---
WS: [id number] OBSTETRICAL ULTRASOUND COMPLETE HISTORY: Anatomy US COMPARISON: 03/20/2023 Single intrauterine gestation in Cephalic presentation. Cervix is Closed and normal length. Cervical length is 4.5 cm. Normal amount of amniotic fluid surrounds the fetus. Placenta: Anterior, no previa or abruption placenta grade 0 Heart: 141 BPM. Four chambers are identified. RIGHT and LEFT outflow tracts are unremarkable. Anatomy: Intracranial structures and spine are normal. kidneys, stomach and urinary bladd er are unremarkable. Abdominal wall, three-vessel cord and cord insertion site are normal. 4 extremities are present. profile: Unremarkable. Gender: Male. measurements: BPD = 4.5 cm = 19w3d; HC = 16.9 cm = 19w4d; AC = 14.5 cm = 19w6d; FL = 3.4 cm = 20w5d; EFW: 334 g. Biometry is internally concordant. AGA by ultrasound: 19w6d MADDIE by ultrasound: 10/26/2023 IMPRESSION: 1. Single intrauterine gestation of 19w6d with an MADDIE of 10/26/2023. Appropriate growth since the rst trimester ultrasound. 2. Unremarkable screening survey of anatomy.
== END 2023-06-07 10:02 | disposition home or self-care (01) ==
PROVIDERS: PCP Family Medicine; Visit Provider Family Medicine
DX: Z34.92 Encounter for supervision of normal pregnancy, unspecified, second trimester (principal); Z3A.19 19 weeks gestation of pregnancy
CPT/HCPCS: 76805

== ENCOUNTER → 2023-07-01 10:10 | Outpatient (BNVA) | payer OTHER, BC, MEDICAID, SELFPAY | PROVIDERS: PCP Family Medicine; Visit Provider Family Medicine | DX: Z34.80 Encounter for supervision of other normal pregnancy, unspecified trimester (principal) | CPT/HCPCS: 82950 ==

== ENCOUNTER → 2023-09-06 09:30 | Outpatient (BNVA) | payer OTHER, BC, MEDICAID, SELFPAY | PROVIDERS: PCP Family Medicine; Visit Provider Family Medicine | DX: Z51.81 Encounter for therapeutic drug level monitoring (principal); Z34.80 Encounter for supervision of other normal pregnancy, unspecified trimester | CPT/HCPCS: 85025 ==

== ENCOUNTER → 2023-09-26 11:09 | Outpatient (BNVA) | payer OTHER, BC, MEDICAID, SELFPAY | PROVIDERS: PCP Family Medicine; Visit Provider Family Medicine | DX: Z34.90 Encounter for supervision of normal pregnancy, unspecified, unspecified trimester (principal); Z34.80 Encounter for supervision of other normal pregnancy, unspecified trimester | CPT/HCPCS: 87081 ==

== ENCOUNTER 2023-09-30 19:30 | Outpatient (CLI) | payer OTHER, BC, MEDICAID, SELFPAY ==
[2023-09-30 19:30] VITALS: BMI 34.4
[2023-09-30 19:39] VITALS: BP 117/78; PULSE 100
[2023-09-30 20:09] VITALS: BP 103/66; PULSE 75
[2023-09-30 20:16] VITALS: RESP 16; TEMP 36.7
[2023-09-30 20:30] VITALS: BP 103/65; PULSE 65; RESP 16; TEMP 36.7
== END 2023-09-30 20:30 | disposition home or self-care (01) ==
LOC: OPOB 19:37 → OBGYN 19:38
PROVIDERS: PCP Family Medicine; Visit Provider Family Medicine
DX: O36.8190 Decreased fetal movements, unspecified trimester, not applicable or unspecified (principal); Z3A.00 Weeks of gestation of pregnancy not specified
CPT/HCPCS: 59025; 99211

== ENCOUNTER 2023-10-18 06:02 | Inpatient (IN) | payer OTHER, BC, MEDICAID, SELFPAY ==
[2023-10-18] VITALS (36 sets, daily range): BP systolic 84–116; BP diastolic 50–81; PULSE 53–106; RESP 18; TEMP 35.9; BMI 35.0
[2023-10-18 07:06] LABS: Basophils % 0.4 %; Eosinophils # 0.2 10^3/uL (0.0-0.8); Eosinophils % 2.6 %; Hematocrit 30.5 % (36-47); Lymphocytes # 1.7 10^3/uL (0.8-4.8); Lymphocytes % 23.9 %; Mean Corpuscular HGB Conc 32.8 g/dL (30-55); Mean Corpuscular Hemoglobin 25.3 pg (27-33); Mean Corpuscular Volume 77.2 fl (85-98); Mean Platelet Volume 11.6 fL (7.4-10.4); Monocytes # 0.7 10^3/uL (0.2-0.9); Monocytes % 10.1 %; Neutrophils # 4.35 10^3/uL (1.8-7.7); Neutrophils % 62.7 %; Nucleated Red Blood Cells % 0 %; Platelet Count 186 10^3/cmm (157-399); Red Blood Count 3.95 10^6/uL (3.85-5.65); White Blood Count 6.94 10^3/uL (3.29-11.43)
[2023-10-18] MEDS: miSOPROStol 100 mcg tablet 25 MCG VAGINAL ×2 (07:21→13:03)
[2023-10-18] MEDS: dextrose 5%-lactated ringers 1,000 ML 500 ML IV (11:44)
--- NOTE | 2023-10-18 15:46 | P.HP_ITS ---
Providers/Chief Complaint 2 Admitting Physician: Jun Vargas MD Primary Care Provider: Jun Vargas MD Chief Complaint: Induction History of Present Illness Traci Gaspar is a 28 year old @ 39.0 wks by LMP c/w 8 wk US. Preg c/b Severe persistent asthma, h/o cervical laceration, h/o heavy bleeding , history of ASCUS, h/o short shoulder dystocia. The patient presents to labor delivery for a scheduled elective induction of labor due to history of short shoulder dystocia. We had discussed the possibility of another shoulder dystocia taking place with her history and decided it would be best to proceed with induction at 39 weeks to decrease this risk in terms of baby size. Currently the patient is feeling well. She denies any chest pains, shortness of breath, nausea, vomiting, diarrhea, constipation, dysuria, leakage of fluid, vaginal bleeding. Medications/Allergies Home Medications Medication Instructions Recorded Confirmed Last Taken Type budesonide 0.5 mg/2 mL suspension 0.25 mg inhalation DAILY PRN 06/28/22 10/18/23 3 Weeks Ago Rx for nebulization (Pulmicort) Shortness Of Breath Or Wheezing ~09/27/23 #60 mL prenat.vits,kennedy,byc-ymmt-ygfpm 1 tab PO DAILY 03/05/23 10/18/23 1 Day Ago History ~10/17/23 albuterol sulfate 90 mcg/actuation See Rx Instructions .Route 04/05/23 10/18/23 3 Weeks Ago Rx aerosol inhaler .COMPLEX #8.5 grams ~09/27/23 fluticasone 250 mcg-salmeterol 50 1 inh inhalation BID #60 ea 06/07/23 10/18/23 10/18/23 Rx mcg/dose blistr powdr for inhalation (Advair Diskus) ferrous sulfate 325 mg (65 mg 325 mg PO DAILY #30 tabs 09/16/23 10/18/23 1 Day Ago Rx iron) tablet ~10/17/23 Allergies Allergy/AdvReac Type Severity Reaction Status Date / Time cefaclor [From [facility]] Allergy Unknown Verified 06/28/22 15:56 PFSH Acute 2 PFSH: Medical History Asthma Surgical History Hx of tonsillectomy and adenoids Social History Smoking and tobacco/nicotine status: current every day tobacco/nicotine user e- cigarettes E-Cigarette Details: vaporizer device E-cig/vape details: Stopped since February 16 Alcohol intake: never Substance/Drug Use: never Female Reproductive History: : 3 Vitals/I&O/Wt Last Vital Signs Temp 96.6 F L 10/18/23 06:19 Pulse 82 10/18/23 15:00 Resp 18 10/18/23 11:00 BP 84/54 10/18/23 15:00 O2 Del Method Room Air 10/18/23 06:24 Weight last 48 hrs Weight 204 lb Weight 204 lb Physical Exam 2 Narrative: General: Alert and oriented x3 Eyes: Pupils equal round and reactive to light and accommodation Mouth: Mucous membranes moist, pharynx non-erythematous Cardiac: Regular rate and rhythm without murmurs Lungs: Clear to auscultation bilaterally without wheezes, crackles or rhonchi Abdomen: Soft, non-tender, fundus consistent with gestational age Extremities: Trace edema in the bilateral lower extremities Urinary Catheter Management: Rosales: Cath Placed During This Visit: yes, but has since been removed by the nurse Reason for Continuing Indwelling Catheter: Decision to DC Catheter Urinary Catheter Date of Insertion: 11/02/19 Urinary Catheter Time of Insertion: 15:45 Date Urinary Catheter Removed: 11/02/19 Time Urinary Catheter Discontinued: 18:43 Data 10/18/23 06:40 A&P Assessment and plan (1) Supervision of normal intrauterine in multigravida: The patient is doing well at this time. Upon presentation she is closed, thick and high. She will be given Cytotec up to 3 doses. She is wilber, however is not feeling her contractions much. heart tones have been category 1 in the 130s with moderate variability good accelerations. The patient is GBS negative. We will certainly watch for signs of complications related to history of shoulder dystocia. We will proceed with routine care otherwise. All questions were answered. The patient and her are in agreement with the current plan of care. (2) Asthma: This has been well-controlled with her inhaler. Continue while in the hospital. Attestations 2 Medical Necessity Statement*: The patient will be here for greater than 2 midnights due to routine intrapartum and management of labor and delivery. Coding Level of Care Code Acute Code for Chg Fwd Diagnoses Supervision of normal intrauterine in multigravida Z34.80 Asthma J45.909
[2023-10-18] MEDS: oxytocin 30 UNIT/500 ML BAG IV (17:31)
[2023-10-18] MEDS: dextrose 5%-lactated ringers 1,000 ML 125 ML IV (21:39)
[2023-10-19] VITALS (109 sets, daily range): BP systolic 80–122; BP diastolic 48–87; PULSE 49–96; RESP 16–17; TEMP 36.3–37.3; O2SAT 90–100
[2023-10-19] MEDS: dextrose 5%-lactated ringers 1,000 ML 125 ML IV ×2 (05:21→17:13)
--- NOTE | 2023-10-19 09:23 | P.PN_ITS ---
Subjective 2 Subjective: The patient is doing well overall at this time. She is wilber every 2 to 4 minutes. She is currently 1.5 cm dilated. She has been on IV Pitocin overnight and is up to 12 units. She denies any leakage of fluid, chest pains, shortness of breath, nausea, vomiting. Vitals/I&O/Wt Last Vital Signs Temp 96.6 F L 10/18/23 06:19 Pulse 66 10/19/23 06:36 Resp 18 10/18/23 11:00 BP 108/69 10/19/23 06:36 O2 Del Method Room Air 10/18/23 06:24 10/18/23 10/19/23 10/19/23 22:59 06:59 14:59 Intake Total 752.634 / 9355.326 1876 / 2069.967 Balance 752.634 / 8472.777 1300 / 2069.967 Weight last 48 hrs Weight 204 lb Weight 204 lb Physical Exam 2 Narrative: General: Alert and oriented x3 Mouth: Mucous membranes moist, pharynx non-erythematous Cardiac: Regular rate and rhythm without murmurs Lungs: Clear to auscultation bilaterally without wheezes, crackles or rhonchi Abdomen: Soft, non-tender, fundus consistent with gestational age Extremities: +1 edema in the bilateral lower extremities Urinary Catheter Management: Rosales: Cath Placed During This Visit: yes, but has since been removed by the nurse Reason for Continuing Indwelling Catheter: Decision to DC Catheter Urinary Catheter Date of Insertion: 11/02/19 Urinary Catheter Time of Insertion: 15:45 Date Urinary Catheter Removed: 11/02/19 Time Urinary Catheter Discontinued: 18:43 Data 10/18/23 06:40 A&P Assessment and plan (1) Supervision of normal intrauterine in multigravida: The patient received 2 doses of Cytotec and was wilber frequently, but not changing well with this. I do not feel comfortable with placing a third dose of Cytotec with the frequent contractions, so she was placed on IV Pitocin yesterday afternoon. She has not made significant change and is only 1.5 cm dilated. We will pause the Pitocin and allow the patient to eat and recheck in a couple of hours. At that point we may see if a Rosales bulb would be a better next step or if restarting IV Pitocin would be better. The patient is in agreement with current plan of care. heart tones have been category 1 throughout. Attestations 2 Medical Necessity Statement*: The patient will be here for greater than 2 midnights due to routine intrapartum and management of labor and delivery. Coding Level of Care Code Acute Code for Chg Fwd Diagnoses Supervision of normal intrauterine in multigravida Z34.80
[2023-10-19] MEDS: prenatal vitamin Capsule 1 CAP PO (10:35)
[2023-10-19] MEDS: ferrous sulfate EC 325 mg Tablet PO (10:36)
[2023-10-19] MEDS: ondansetron 2 mg/ML SDV 2 mL 4 MG IVP (12:03)
[2023-10-19] MEDS: lactated ringers 1,000 ML 999 ML IV ×2 (12:17→13:20)
[2023-10-19] MEDS: ROPivacaine syringe 100 MG/50 ML SYRINGE 10 MG EPIDURAL ×2 (14:01→17:26)
--- NOTE | 2023-10-19 14:46 | ANES.PREANE2 ---
Pre-Anesthetic Assessment Height/Weight: Height 1.63 m Weight 92.533 kg Temp Pulse Resp BP Pulse Ox O2 Del Method 97.3 F L 74 17 100/66 97 Room Air 10/19/23 12:07 10/19/23 14:42 10/19/23 11:00 10/19/23 14:42 10/19/23 14:40 10/18/23 06:24 Preop Diagnosis: IUP active labor Labor Epidural Familial anesthetic complications: None Last intake: 09- meal clears current Social No alcohol and No tobacco (vaped until february) Exam alert, oriented x 3 and clear to auscultation bilaterally Airway Submandibular: within normal limits Cervical ROM: within normal limits Mallampati: Class II Dentition: full History/ROS No significant history except as noted Pulmonary None reported CV/HEM None reported None reported Hepatic None reported GI None reported Metabolic None reported Musc/skel None reported Neuropsych None reported Anesthetic Plan ASA status: 2 Anesthesia: Regional (specify below) Other: Labor Epidural Medications/Allergies Home Medications Medication Instructions Recorded Confirmed Last Taken Type budesonide 0.5 mg/2 mL suspension 0.25 mg inhalation DAILY PRN 06/28/22 10/18/23 3 Weeks Ago Rx for nebulization (Pulmicort) Shortness Of Breath Or Wheezing ~09/27/23 #60 mL prenat.vits,kennedy,qtk-nleq-cwplh 1 tab PO DAILY 03/05/23 10/18/23 1 Day Ago History ~10/17/23 albuterol sulfate 90 mcg/actuation See Rx Instructions .Route 04/05/23 10/18/23 3 Weeks Ago Rx aerosol inhaler .COMPLEX #8.5 grams ~09/27/23 fluticasone 250 mcg-salmeterol 50 1 inh inhalation BID #60 ea 06/07/23 10/18/23 10/18/23 Rx mcg/dose blistr powdr for inhalation (Advair Diskus) ferrous sulfate 325 mg (65 mg 325 mg PO DAILY #30 tabs 09/16/23 10/18/23 1 Day Ago Rx iron) tablet ~10/17/23 Allergies Allergy/AdvReac Type Severity Reaction Status Date / Time cefaclor [From [facility]] Allergy Unknown Verified 06/28/22 15:56 Current Medications Generic Name Dose Route Start Last Admin Trade Name Freq PRN Reason Stop Dose Admin Ferrous Sulfate 325 mg 10/19/23 09:00 10/19/23 10:36 Ferrous Sulfate Ec 325 Mg Tablet PO 325 mg DAILY FRANDY Administration Dextrose/Lactated Ringer's 1,000 mls @ 125 mls/hr 10/18/23 06:30 10/19/23 14:21 Dextrose 5%-Lactated Ringers IV 125 mls/hr .Q8H FRANDY Infusion Oxytocin 30 unit in 500 mls @ 2 mls/hr 10/18/23 17:30 10/19/23 12:45 Pitocin IV 6 milliunit/min .Q24H FRANDY 6 mls/hr Titration Protocol 2 MILLIUNIT/MIN Lactated Ringer's 1,000 mls @ 999 mls/hr 10/19/23 12:05 10/19/23 14:21 Lactated Ringers IV Infused .Q1H1M PRN Infusion See label comments Ropivacaine 100 mg in 50 mls @ 10 mls/hr 10/19/23 12:05 10/19/23 14:01 Naropin Syringe EPIDURAL 10 mls/hr .Q5H PRN Administration LABOR PAIN Ondansetron HCl 4 mg 10/18/23 06:25 10/19/23 12:03 Ondansetron 2 Mg/Ml Sdv 2 Ml IVP 4 mg Q4H PRN Administration NAUSEA AND VOMITING Multivit/Folic Acid/Iron 1 cap 10/19/23 09:00 10/19/23 10:35 Vitamin Capsule PO 1 cap DAILY FRANDY Administration PFSH Anesthesia Medical History Asthma Surgical History Hx of tonsillectomy and adenoids Social History Smoking and tobacco/nicotine status: current every day tobacco/nicotine user e-cigarettes E-Cigarette Details: vaporizer device E-cig/vape details: Stopped since February 16 Alcohol intake: never Substance/Drug Use: never Female Reproductive History : 3 Data Anesthesia 10/18/23 06:40 Short CBC 10/18/23 Range/Units 06:40 WBC 6.94 (3.29-11.43) 10^3/uL Hgb 10.00 L (11.27-16.99) g/dL Hct 30.5 L (36-47) % MCV 77.2 L (85-98) fl Plt Count 186 (157-399) 10^3/cmm Neut % (Auto) 62.7 % Neut # (Auto) 4.35 (1.8-7.7) 10^3/uL Blood Bank 10/18/23 06:40 Blood Type O Positive Rho(D) Type Rh positive Antibody Screen Negative Cardiac Studies: No Data to Display Anesthesia Procedures Epidural Time Out Performed: Yes Consent: from patient, risks and benefits reviewed and patient agrees to proceed Lumbar Level: L3-L4 Epidural position: sitting Epidural procedure: sterile prep of area, 1% lidocaine to numb the area, negative for paresthesia passed, test dose given, 1.5% xylocaine 1:200k epi, placed PCEA, no systemic response, sterile dressing applied, L.U.D. no apparent complications and 0.2% Ropiavacaine @ mls/hr (10) Additional Comments: SHERRY 6cm on second attempt, first attempt +heme -csf. Catheter threaded to 12cm - heme -csf 100mcg fentanyl given via epidural. VSS adequate analgesia achieved.
--- NOTE | 2023-10-19 19:05 | PM.DELIVERY ---
Delivery Note: Date of delivery: October 19, 2023 Pre-delivery diagnoses: 1. Intrauterine at 39.1 weeks gestation 2. Asthma 3. History of cervical laceration 4. History of heavy bleeding 5. History of ASCUS 6. History of short shoulder dystocia Post-delivery diagnoses: 1. Intrauterine status post spontaneous vaginal delivery at 39.1 weeks gestation 2. Asthma 3. History of cervical laceration 4. History of heavy bleeding 5. History of ASCUS 6. History of short shoulder dystocia 7. Delivery of healthy infant male weighing 8 pounds 8 ounces with Apgars of 8 and 9 Procedure: Spontaneous vaginal delivery Delivering Physician: Jun Vargas MD Estimated blood loss (mL): 350 Pre-Delivery Course: Traci Gaspar is a 28 year old G3 now P2 status post spontaneous vaginal delivery @ 39.1 wks by LMP c/w 8 wk US. Preg c/b Severe persistent asthma, h/o cervical laceration, h/o heavy bleeding , history of ASCUS, h/o short shoulder dystocia. The patient presented to labor delivery on the morning of 10/18/2023 for a scheduled elective induction of labor due to history of short shoulder dystocia. We had discussed the possibility of another shoulder dystocia taking place with her history and decided it would be best to proceed with induction at 39 weeks to decrease this risk in terms of baby's size. The patient was started on Cytotec and received 2 doses. She was wilber regularly and IV Pitocin was started. She continued this overnight and by morning she had made minimal change. For this reason, it was paused for 2 hours and she was allowed to eat and shower. After this, she was 3 cm dilated and IV Pitocin was restarted. The patient continued to make change from this point on and SROM took place at 1559 on 10/19/2023. Fluid was clear. The patient continued to make change and was complete by 1802 on 10/19/2023. Delivery: The patient began pushing at 1809 on 10/19/2023. The patient pushed well and the delivered in the OA position at 1831 on 10/19/2023. No nuchal cord was present. The left shoulder was the anterior shoulder and it delivered with steady firm downward pressure. The rest of the infant delivered without complication. The infant's mouth and nose were bulb suction by myself and the began crying shortly after delivery. The was vigorous at delivery. The infant was placed on the mother's chest where the nurses were waiting to care for him. The cord was clamped by myself after approximately 1 minute and cut by the infant's father. Cord blood was obtained. The cord was then drained of blood and traction was placed on the umbilical cord and suprapubic massage was carried out. The placenta delivered at 1835 on 10/19/2023 without complication. Pitocin was bolused. The placenta was noted to be intact with a central umbilical cord insertion site. The cervix was inspected and no lacerations were noted. The uterus was massaged and initially there was very heavy bleeding but with uterine massage and Pitocin bolus, this slowed down quickly. The cervix was again inspected and no lacerations were noted. The vaginal wall was inspected and a second-degree laceration was noted in the perineal region over prior scarring. This was repaired using 3-0 Vicryl in a running fashion. No lidocaine was needed as her epidural provided adequate anesthesia. The patient tolerated the procedure well. A rectal exam was done and no sutures were noted in the rectal vault. Post-Delivery Status: Currently both the mother and infant are doing well. History History History 3 Term 2 0 Miscarriages/Ectopic 1 Living Children 2 Past Pregnancies Del. Date GA/Weeks Outcome Route Wt Inf Gender Labor Lgth Comp. Anesthesia Location 11/02/19 39 live - full term Vaginal 7 lb 12 oz Female 24 hr [facility] [place] 05/19/22 4 spontaneous 10/19/23 39 live - full term Vaginal 8 lb 8 oz [facility] [place] Delivery Date: 11/02/19 Last Updated by: Jun Vargas MD Heavy PP bleeding, cervical laceration, short shoulder dystocia, short-term hypotension after delivery. Delivery Date: 10/19/23 Last Updated by: Jun Vargas MD No shoulder dystocia but steady pressure needed, heavy bleeding immediately after that resolved quickly with uterine massage and IV pitocin only, asthma well-controlled. A&P Assessment and plan (1) Spontaneous vaginal delivery: Coding Level of Care Code Acute Code for Chg Fwd Diagnoses Spontaneous vaginal delivery O80
[2023-10-19] MEDS: lanolin oint 7 gm 1 APPLIC TOPICAL (20:10)
[2023-10-19] MEDS: ibuprofen Oral Susp 100 mg/5mL UDC 800 MG PO (23:32)
[2023-10-20 00:30] VITALS: BP 105/69; PULSE 74; RESP 15; TEMP 36.8; O2SAT 96
[2023-10-20 02:30] VITALS: BP 109/72; PULSE 72; RESP 15; TEMP 36.4; O2SAT 97
--- NOTE | 2023-10-20 02:45 | PC.NURSE ---
This nurse rounded on patient for vitals and fundal assessment. Fundal assessment 0230 U-2 firm scant bleeding midline position. Patient states can I go to the bathroom while youre in here. when patient comes back to bed she states she felt a gush. This nurse checks bleeding on newly applied pad, minimal bleeding noted, Fundal assessment U-2 firm and midline position.
[2023-10-20 04:30] VITALS: BP 108/72; PULSE 63; RESP 16; TEMP 36.5; O2SAT 97
[2023-10-20 06:49] LABS: Hematocrit 28.2 % (36-47); Mean Corpuscular HGB Conc 32.6 g/dL (30-55); Mean Corpuscular Hemoglobin 25.3 pg (27-33); Mean Corpuscular Volume 77.5 fl (85-98); Mean Platelet Volume 11.3 fL (7.4-10.4); Platelet Count 170 10^3/cmm (157-399); Red Blood Count 3.64 10^6/uL (3.85-5.65); Red Cell Distribution Width 13.2 % (12.1-15.1); White Blood Count 9.93 10^3/uL (3.29-11.43)
--- NOTE | 2023-10-20 08:08 | ANE.PACU2 ---
Inpatient post-anesthesia follow up: Airway intact: Yes Vital signs: Temperature 97.7 F Pulse Rate 63 Respiratory Rate 16 Blood Pressure 108/72 Pulse Oximetry 97 Oxygen Delivery Me thod Room Air Oxygen Flow Rate Fraction of Inspir ed Oxygen Mental status: Baseline Epidural Start/End: Epidural Start Date: 10/19/23 Epidural Start Time: 13:19 Epidural End Date: 10/19/23 Epidural End Time: 19:35
[2023-10-20] MEDS: ferrous sulfate EC 325 mg Tablet PO (09:14)
[2023-10-20 09:17] VITALS: BP 88/62; PULSE 84; RESP 17; TEMP 36.5
[2023-10-20] MEDS: ibuprofen Oral Susp 100 mg/5mL UDC 800 MG PO ×2 (09:54→15:22)
--- NOTE | 2023-10-20 10:06 | PM.DCS ---
Discharge Providers Date of Admission: 10/18/23 06:03 Date of Discharge: October 20, 2023 Attending Provider at Admission: Jun Vargas MD Attending Provider at Discharge: Jun Vargas MD Primary Care Provider: Jun Vargas MD Diagnoses at Discharge Discharge Diagnosis (1) Spontaneous vaginal delivery: Status: Resolved Other Information Additional DC diagnoses/information: 1. Intrauterine status post spontaneous vaginal delivery at 39.1 weeks gestation 2. Asthma 3. History of cervical laceration 4. History of heavy bleeding 5. History of ASCUS 6. History of short shoulder dystocia 7. Delivery of healthy infant male weighing 8 pounds 8 ounces with Apgars of 8 and 9 Reason for Visit Reason for Visit: Induction Hospital Course Hospital Course Traci Gaspar is a 28 year old G3 now P2 status post spontaneous vaginal delivery @ 39.1 wks by LMP c/w 8 wk US. Preg c/b Severe persistent asthma, h/o cervical laceration, h/o heavy bleeding , history of ASCUS, h/o short shoulder dystocia. The patient presented to labor delivery on the morning of 10/18/2023 for a scheduled elective induction of labor due to history of short shoulder dystocia. We had discussed the possibility of another shoulder dystocia taking place with her history and decided it would be best to proceed with induction at 39 weeks to decrease this risk in terms of baby's size. The patient was started on Cytotec and received 2 doses. She was wilber regularly and IV Pitocin was started. She continued this overnight and by morning she had made minimal change. For this reason, it was paused for 2 hours and she was allowed to eat and shower. After this, she was 3 cm dilated and IV Pitocin was restarted. The patient continued to make change from this point on and SROM took place at 1559 on 10/19/2023. Fluid was clear. The patient continued to make change and was complete by 1802 on 10/19/2023. The patient began pushing at 1809 on 10/19/2023. The patient pushed well and the infant delivered in the OA position at 1831 on 10/19/2023. No nuchal cord was present. The left shoulder was the anterior shoulder and it delivered with steady firm downward pressure. The rest of the infant delivered without complication. The 's mouth and nose were bulb suction by myself and the infant began crying shortly after delivery. The was vigorous at delivery. The was placed on the mother's chest where the nurses were waiting to care for him. The cord was clamped by myself after approximately 1 minute and cut by the 's father. Cord blood was obtained. The cord was then drained of blood and traction was placed on the umbilical cord and suprapubic massage was carried out. The placenta delivered at 1835 on 10/19/2023 without complication. Pitocin was bolused. The placenta was noted to be intact with a central umbilical cord insertion site. The cervix was inspected and no lacerations were noted. The uterus was massaged and initially there was very heavy bleeding but with uterine massage and Pitocin bolus, this slowed down quickly. The cervix was again inspected and no lacerations were noted. The vaginal wall was inspected and a second-degree laceration was noted in the perineal region over prior scarring. This was repaired using 3-0 Vicryl in a running fashion. No lidocaine was needed as her epidural provided adequate anesthesia. The patient tolerated the procedure well. , the patient has done well without complications. She is ambulating, voiding, passing gas and tolerating treatment well. Her pain is well-controlled. Her bleeding has decreased well. She has been breast-feeding. We will proceed with routine care. Follow-up at 6 weeks or sooner if needed. Physical Exam Narrative: General: Alert and oriented x3 Cardiac: Regular rate and rhythm without murmurs Lungs: Clear to auscultation bilaterally without wheezes, crackles or rhonchi Abdomen: Soft, mild tenderness over uterus. The uterus is firm and 2 cm below the umbilicus. Extremities: Trace edema in the bilateral lower extremities Urinary Catheter Management: Rosales: Cath Placed During This Visit: yes, but has since been removed by the nurse Reason for Continuing Indwelling Catheter: Decision to DC Catheter Urinary Catheter Date of Insertion: 10/19/23 Urinary Catheter Time of Insertion: 14:26 Date Urinary Catheter Removed: 10/19/23 Time Urinary Catheter Discontinued: 18:05 Discharge Data Studies Completed and Pending Laboratory Results WBC 9.93 10^3/uL (3.29-11.43) 10/20/23 06:37 RBC 3.64 10^6/uL (3.85-5.65) L 10/20/23 06:37 Hgb 9.20 g/dL (11.27-16.99) L 10/20/23 06:37 Hct 28.2 % (36-47) L 10/20/23 06:37 MCV 77.5 fl (85-98) L 10/20/23 06:37 MCH 25.3 pg (27-33) L 10/20/23 06:37 MCHC 32.6 g/dL (30-55) 10/20/23 06:37 RDW 13.2 % (12.1-15.1) 10/20/23 06:37 Plt Count 170 10^3/cmm (157-399) 10/20/23 06:37 MPV 11.3 fL (7.4-10.4) H 10/20/23 06:37 Neut % (Auto) 62.7 % 10/18/23 06:40 Lymph % (Auto) 23.9 % 10/18/23 06:40 [place] % (Auto) 10.1 % 10/18/23 06:40 Eos % (Auto) 2.6 % 10/18/23 06:40 Baso % (Auto) 0.4 % 10/18/23 06:40 Neut # (Auto) 4.35 10^3/uL (1.8-7.7) 10/18/23 06:40 Lymph # (Auto) 1.7 10^3/uL (0.8-4.8) 10/18/23 06:40 [place] # (Auto) 0.7 10^3/uL (0.2-0.9) 10/18/23 06:40 Eos # (Auto) 0.2 10^3/uL (0.0-0.8) 10/18/23 06:40 Baso # (Auto) 0.0 10^3/uL (0.0-0.1) 10/18/23 06:40 Nucleated RBC % (auto) 0 % 10/18/23 06:40 Nucleated RBCs # 0.0 /100WBC 10/18/23 06:40 Blood Type O Positive 10/18/23 06:40 Rho(D) Type Rh positive 10/18/23 06:40 Antibody Screen Negative 10/18/23 06:40 Vitals Last Vital Signs Temp 97.7 F 10/20/23 04:30 Pulse 63 10/20/23 04:30 Resp 16 10/20/23 04:30 BP 108/72 10/20/23 04:30 Pulse Ox 97 10/20/23 04:30 O2 Del Method Room Air 10/20/23 04:30 Discharge Plan Discharge Patient Disposition: Home Condition: Good Prescriptions: New Children's Ibuprofen 100 mg/5 mL Suspension 800 mg PO TID Qty: 800 0RF Continued budesonide [Pulmicort] 0.5 mg/2 mL suspension for nebulization 0.25 mg INHALATION DAILY PRN (Reason: Shortness Of Breath Or Wheezing) Qty: 60 3RF prenat.vits,kennedy,[id number] Tablet 1 tab PO DAILY albuterol sulfate 90 mcg/actuation HFA aerosol inhaler See Rx Instructions .ROUTE .COMPLEX Qty: 8.5 10RF Dose Instruction: INHALE 1 TO 2 PUFFS EVERY 4-6 HOURS NEEDED FOR SHORTNESS OF BREATH Rx Instructions: INHALE 1 TO 2 PUFFS EVERY 4-6 HOURS NEEDED FOR SHORTNESS OF BREATH fluticasone propion-salmeterol [Advair Diskus] 250-50 mcg/dose blister with device 1 inh inhalation BID Qty: 60 6RF Changed ferrous sulfate 325 mg (65 mg iron) tablet 325 mg PO BIDWMEAL Qty: 60 3RF Discharge Orders: Discharge Order (Routine); Ordered 10/20/23 Ordered By: Jun Vargas Referrals: Jun Vargas MD [Primary Care Provider] - 6 Weeks (Please call in the morning to set up an appointment to see Dr. Vargas.) Discharge Diet: Regular Discharge Activity: Increase activity as tolerated Patient Instructions: Depression (DC), Bleeding (DC), Preeclampsia and Eclampsia After Delivery (GEN), Hemorrhage (DC), OB Discharge Report, OB Food/Drug Interaction Guide, Opioid Safety, OB [facility], OB Vaginal Deliveries Activity Restrictions/Additional Instructions: Showers are recommended instead of baths for the first 6 weeks. Nothing per vagina for 6 weeks. If you have any concerns prior to your appointment, please contact Dr. Vargas's office. Discharge Attestations Time Spent in Discharge Care*: greater than 30 min Quality Metrics Clinical Quality Measures [ No reported AMI, CVA or VTE this stay] Coding Level of Care Code Acute Code for Chg Fwd Diagnoses Spontaneous vaginal delivery O80
[2023-10-20 14:26] VITALS: BP 104/70; PULSE 83; RESP 17; TEMP 36.6; O2SAT 98
[2023-10-20 20:00] VITALS: BP 129/79; PULSE 73; RESP 16; TEMP 36.6; O2SAT 98
== END 2023-10-20 20:07 | disposition home or self-care (01) | DRG 807 ==
LOC: OPOB 06:03 → OBGYN 09:48
PROVIDERS: Admitting Provider Family Medicine; PCP Family Medicine; Visit Provider Family Medicine
DX: O70.1 Second degree perineal laceration during delivery (principal); Z37.0 Single live birth; Z3A.39 39 weeks gestation of pregnancy; J45.50 Severe persistent asthma, uncomplicated; Z87.891 Personal history of nicotine dependence; O75.89 Other specified complications of labor and delivery
CPT/HCPCS: 36415; 51702; 59025; 59409; 85025; 85027; 86850; 86900; 96374; G0378; J2405; J2590; J2795; J3010; J7120; J7121

== ENCOUNTER → 2025-02-24 09:42 | Outpatient (BNVA) | payer OTHER, SELFPAY | PROVIDERS: PCP Family Medicine; Visit Provider Family Medicine | DX: Z00.00 Encounter for general adult medical examination without abnormal findings (principal); R53.81 Other malaise; R53.83 Other fatigue; Z51.81 Encounter for therapeutic drug level monitoring; E55.9 Vitamin D deficiency, unspecified; E53.8 Deficiency of other specified B group vitamins | CPT/HCPCS: 80053; 82306; 82607; 84443; 85025 ==